=== PATIENT | female | born 1960 ===

== ENCOUNTER 2023-05-29 14:39 | Outpatient (AMB) | payer OTHER, SELFPAY ==
--- NOTE | 2023-05-29 08:41 | MHC.OFFVIS ---
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 The patient states that her pains have gotten somewhat worse over the last few months. She denies any trauma preceding the onset of her pain. She has taken ibuprofen which gives her only mild relief. Most of the pain is along the medial aspects of her knees. She states that both of her knees will intermittently give out. 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[employer] Physical Exam Vital Signs: BMI result Body Mass Index 32.9 Const Other: Well-nourished well-developed very friendly female awake alert and oriented x3 in no acute distress Extrem Other: Bilateral lower extremity examination shows good capillary refill, no skin lesions noted, normal sensation light touch Bilateral knee examination shows minimal effusions, tenderness along her medial joint lines, positive Roe's test, no instability Results Reviewed Results Reviewed: X-rays of the patient's bilateral knee show mild joint space narrowing, no acute bony abnormalities Assessment & Plan Assessment & Plan (1) Bilateral knee pain: Code(s): M25.561 - Pain in right knee; M25.562 - Pain in left knee (2) Right knee pain: Code(s): M25.561 - Pain in right knee Plan Ms. Neumann presents with bilateral knee pains and mechanical symptoms, left greater than right, due to early degenerative joint disease as well as possible tearing of her medial menisci. I had a lengthy discussion with the patient regarding the treatment options. The patient was fitted for bilateral knee braces. I do feel that the braces are a medical necessity to help prevent future falls because of the patient's symptoms of instability. I also gave the patient a prescription to go to formal physical therapy. She will follow up on an as-needed basis should her symptoms not plateau at an unacceptable level over the next few months. Feel free to call me at any time should questions regarding her orthopedic management arise. I spent 22 minutes in reviewing the patient's records and imaging studies, seeing the patient and documenting in the medical record. Orders: Orders XR knee LT 3V 05/29/23 M25.562 - Pain in left knee PT Evaluation and Treatment 05/29/23 M25.561 - Pain in right knee, M25.562 - Pain in left knee XR knee RT 3V 05/29/23 M25.561 - Pain in right knee Coding Level of Care Code New Pt Level 2 (99917) Diagnoses Bilateral knee pain M25.561; M25.562 Right knee pain M25.561
[2023-05-29 15:01] VITALS: BMI 32.9
== END 2023-05-29 15:34 | disposition home or self-care (01) ==
PROVIDERS: PCP Internal Medicine; Visit Provider Orthopaedic Surgery
DX: M25.561 Pain in right knee (principal); M25.562 Pain in left knee
CPT/HCPCS: 99202

== ENCOUNTER 2023-05-29 15:30 | Outpatient (REF) | payer OTHER, SELFPAY ==
--- NOTE | ~2023-05-29 | XR_ITS ---
EXAMINATION: XR BILATERAL KNEES CLINICAL INFORMATION: Pain in bilateral knees. COMPARISON: None available. TECHNIQUE: 3 views of each knee. FINDINGS: Right Knee: Small joint effusion. Mild medial joint space narrowing. Tiny medial and posterior patellar osteophytes. Left Knee: Mild medial joint space narrowing. Tiny medial and posterior patellar osteophytes. Moderate suprapatellar effusion. XR/XR knee LT 3V IMPRESSION: Mild degenerative changes in the bilateral knees.
--- NOTE | ~2023-05-29 | XR_ITS ---
EXAMINATION: XR BILATERAL KNEES CLINICAL INFORMATION: Pain in bilateral knees. COMPARISON: None available. TECHNIQUE: 3 views of each knee. FINDINGS: Right Knee: Small joint effusion. Mild medial joint space narrowing. Tiny medial and posterior patellar osteophytes. Left Knee: Mild medial joint space narrowing. Tiny medial and posterior patellar osteophytes. Moderate suprapatellar effusion. XR/XR knee RT 3V IMPRESSION: Mild degenerative changes in the bilateral knees.
== END 2023-05-29 15:31 | disposition home or self-care (01) ==
LOC: HO.HOSX 15:30
PROVIDERS: Visit Provider Orthopaedic Surgery
DX: M25.561 Pain in right knee (principal); M25.562 Pain in left knee
CPT/HCPCS: 73562; 99202

== ENCOUNTER 2023-11-14 12:52 | Outpatient (AMB) | payer OTHER, SELFPAY ==
[2023-11-14 12:54] VITALS: BMI 32.9
--- NOTE | 2023-11-14 12:54 | MHC.OFFVIS ---
Vital Signs 11/14/23 12:54 Height 5 ft 2 in Weight 180 lb BMI 32.9 Intake Visit Reasons: Left knee pain Intake Note: Carrol is a 63 year old female who presents with complaints of bilateral knee pains, left greater than right. The patient states that at this point her right knee pain is tolerable to her. She describes her left knee pain as sharp in nature. She has done physical therapy exercises which aggravated her pain. She has also tried Tylenol and anti-inflammatory medicines which gave her minimal relief. She would like to hold off on surgery if at all possible. Motors And Generators Inspector Required: Yes Motors And Generators Inspector Language: [place] Motors And Generators Inspector Services: Motors And Generators Inspector Present Motors And Generators Inspector Name: Sarahy [id number] Allergies No Known Allergies Allergy (Verified 11/14/23 12:55) Medication List - Last Reconciled 11/14/23 by Blaine Remy MD ibuprofen 200 mg PO Q6H PRN PFSH Surgical History (Updated 05/29/23 @ 15:13 by Marti Griffin CMA) History of Hx of hysterectomy (Unknown) Social History (Updated 05/29/23 @ 15:12 by Marti Griffin CMA) Patient Tobacco Use Status: Never used Tobacco 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 Physical Exam Vital Signs: BMI result Body Mass Index 32.9 Const Other: Well-nourished well-developed very friendly female awake alert and oriented x3 in no acute distress Extrem Other: Bilateral lower extremity examination shows good capillary refill, no skin lesions noted, normal sensation light touch Left knee examination shows a mild effusion, palpable crepitus with range of motion, pain with range of motion, no instability Office Procedures Joint Injection/Aspiration Joint Injection/Aspiration Primary Site: left knee Prep: site was prepped using aseptic technique Injected: 40 mg of, DepoMedrol and 1% plain lidocaine Procedure: The patient tolerated the procedure well Coding 69714 - Large joint Procedure code (CPT) selection complete Results Reviewed Results Reviewed: X-rays of the patient's left knee taken previously show joint space narrowing, subchondral sclerosis, no acute bony abnormalities Assessment & Plan Assessment & Plan (1) Arthritis of left knee: Code(s): M17.12 - Unilateral primary osteoarthritis, left knee Category: Medical (2) Left knee pain: Code(s): M25.562 - Pain in left knee Category: Medical Plan Ms. Neumann presents with bilateral knee pains, left greater than right, due to degenerative joint disease. I had a lengthy discussion with the patient regarding the treatment options. The risks and benefits of a left knee cortisone injection were discussed at length with the patient. The patient wished to proceed. Prior to the injection I aspirated 3 cc of clear fluid from her left knee. She tolerated the injection well. She will continue with her home exercise program. She will follow up with me on an as-needed basis should her symptoms not plateau at an unacceptable level over the next few months. Orders: Orders AMB Joint Injection/Aspiration 11/14/23 M17.12 - Unilateral primary osteoarthritis, left knee Coding Level of Care Code Est Pt Level 3 (40338) Diagnoses Arthritis of left knee M17.12 Left knee pain M25.562 CPT Codes Coding - 63350 Large joint: 05213 - Large joint ([id number])
== END 2023-11-14 13:17 | disposition home or self-care (01) ==
PROVIDERS: Visit Provider Orthopaedic Surgery
DX: M17.12 Unilateral primary osteoarthritis, left knee (principal); M25.562 Pain in left knee
CPT/HCPCS: 20610; 99213

== ENCOUNTER → 2023-11-14 12:52 | Outpatient (BNVA) | payer OTHER, SELFPAY | PROVIDERS: Visit Provider Orthopaedic Surgery | DX: M17.12 Unilateral primary osteoarthritis, left knee (principal); M25.561 Pain in right knee | CPT/HCPCS: 20610; 99212; J1010 ==

== ENCOUNTER 2024-09-01 12:55 | Outpatient (AMB) | payer OTHER, SELFPAY ==
--- NOTE | 2024-09-01 13:15 | MHC.OFFVIS ---
Vital Signs 09/01/24 13:17 Height 5 ft 2 in Weight 180 lb BMI 32.9 Intake Visit Reasons: OV- Left Knee MRI review Intake Note: Carrol is a 64 year old female who presents today for a MRI review of the left knee. The patient states that her left knee feels somewhat better when compared to her last visit. She has been walking for exercise. She takes ibuprofen as needed for her discomfort. 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 Physical Exam Vital Signs: BMI result Body Mass Index 32.9 Const Other: Well-nourished well-developed very friendly female awake alert and oriented x3 in no acute distress Extrem Other: Bilateral lower extremity examination shows good capillary refill, no skin lesions noted, normal sensation light touch Left knee examination shows a minimal effusion, mild crepitus with range of motion, tenderness along her medial joint line, positive Roe's test, no instability Results Reviewed Results Reviewed: MRI of the patient's left knee [facility] shows mild diffuse degenerative changes as well as a tear of the medial meniscus Assessment & Plan Assessment & Plan (1) Tear of medial meniscus of left knee: Code(s): S83.242A - Other tear of medial meniscus, current injury, left knee, initial encounter Category: Medical Plan Ms. Neumann presents with intermittent left knee discomfort due to a medial meniscus tear. I had a lengthy discussion with the patient regarding the treatment options. At this point the patient's symptoms are tolerable to her. She will continue with her activity modifications. She will follow up with me on an as-needed basis should her symptoms worsen in any way. Feel free to call me at any time should questions regarding her orthopedic management arise. I spent 21 minutes in reviewing the patient's records and imaging studies, seeing the patient and documenting in the medical record. Coding Level of Care Code Est Pt Level 3 (29987) Complex EM visit Add On G2211 Diagnoses Tear of medial meniscus of left knee S83.242A
[2024-09-01 13:17] VITALS: BMI 32.9
--- OUTSIDE RECORDS SUMMARY | 2024-09-01 14:25 | XMS_ITS | Clinical Summary ---
Author Organization [address] [facility] Address [address] [place] [address] Phone Care Team Providers Care Frit Mixer Name Role Phone Caridad Snyder MD Primary Care Provider [phone] Surgical History Surgery Date Site/Laterality Comments CHOLECYSTECTOMY 2010 PROCEDURE: HISTORICAL CHOLECYSTECTOMY SECTION PROCEDURE: HISTORICAL DELIVERY; COMMENT: x 2 OTHER SURGICAL HISTORY 10/18/2016 PROCEDURE: GA DILATION & CURETTAGE DX&/THER NONOBSTETRIC; COMMENT: Hysteroscopy, D&C with removal of a submucous fibroid as performed by Dr. Jacqueline Gu OTHER SURGICAL HISTORY 08/04/2018 PROCEDURE: HISTORICAL TOTAL HYSTERECTOMY W/O BSO; COMMENT: Total abdominal hysterectomy with bilateral salpingectomy performed by Dr. Srivastava. Medical History Medical History Date Comments Intramural leiomyoma of uterus D X:Intramural leiomyoma of uterus Family History Relation Name Status Comments Father Mother Alive Son 1 Alive Son 2 Alive Son 3 Alive Son 4 Alive Son 5 Alive Social History Tobacco Use Types Packs/Day Years Used Date Smoking Tobacco: Never Smokeless Tobacco: Never Alcohol Use Standard Drinks/Week Comments No 0 (1 standard drink = 0.6 oz pur e alcohol) Comments Unknown Sex and Gender Information Value Date Recorded Sex Assigned at Not on file Legal Sex Female 8:18 AM EST Gender Identity Not on file Sexual Orientation Not on file Obstetrics History Last Filed Vital Signs Vital Sign Reading Time Taken Comments Blood Pressure - - Pulse - - Temperature - - Respiratory Rate - - Oxygen Saturation - - Inhaled Oxygen Concentration - - Weight 83.2 kg (183 lb 6.4 oz) 06/26/2023 8:12 A M EDT Height 157.5 cm (5' 2 ) 06/26/2023 8:12 AM EDT Body Mass Index 33.54 06/26/2023 8:12 AM EDT Plan of Treatment Upcoming Encounters Date Type Department Care Team (Late Contact Info) Description 09/09/2024 10:30 AM EDT Consult Orthopedic Surgery - [facility] [address] [facility] [address] [place] [address] Jenna Lechuga PA [address] [facility] [address] [place] [address] Health Maintenance Due Date Last Done Comments Breast Cancer Screening 1962 DTaP,Tdap,and Td Vaccines (1 - Tdap) 1981 Cervical Cancer Screening: HPV 06/01/1983 Pneumococcal Vaccine: 50+ Ye ars (1 of 1 - PCV) 2012 Zoster Vaccines (1 of 2) 2012 Colorectal Cancer Screening: Colonoscopy 02/24/2022 Depression Screening 02/24/2022 HIV Screening 02/24/2022 Hepatitis C Screening 02/24/2022 Social Influencers of Health Screening 02/24/2022 COVID-19 Vaccine ( - 2023-2 5 season) 2023 Influenza Vaccine (Season Ended) 2024 RSV Immunization Adult Patie nts (1 - 1-dose 75+ series) 2037 HIB Vaccines Aged Out No longer eligi ble based on patient's age to complete this topic HPV Vaccines Aged Out No longer eligi ble based on patient's age to complete this topic Hepatitis A Vaccines Aged Out No long er eligible based on patient's age to complete this topic Hepatitis B Vaccines Aged Out No long er eligible based on patient's age to complete this topic IPV Vaccines Aged Out No longer eligi ble based on patient's age to complete this topic MMR Vaccines Aged Out No longer eligi ble based on patient's age to complete this topic Meningococcal ACWY Vaccine Aged Out N o longer eligible based on patient's age to complete this topic Meningococcal B Vaccine Aged Out No l onger eligible based on patient's age to complete this topic Pneumococcal Vaccine: Pediat rics (0 to 5 Years) and At-Risk Patients (6 to 64 Years) Aged Out No longer eligible b ased on patient's age to complete this topic RSV Immunization Patients Un graham 20 months Aged Out No longer eligible b ased on patient's age to complete this topic Varicella Vaccines Aged Out No longer eligible based on patient's age to complete this topic Insurance [facility] Care Teams Frit Mixer Relationship Specialty Start Date End Date Caridad Snyder MD [address] [facility] [address] [place] [address] PCP - General 05/16/23
== END 2024-09-01 13:49 | disposition home or self-care (01) ==
LOC: HO.HOS 12:55
PROVIDERS: Visit Provider Orthopaedic Surgery
DX: S83.242A Other tear of medial meniscus, current injury, left knee, initial encounter (principal)
CPT/HCPCS: 99213; G2211

== ENCOUNTER → 2024-09-01 12:55 | Outpatient (BNVA) | payer OTHER, SELFPAY | PROVIDERS: Visit Provider Orthopaedic Surgery | DX: S83.242A Other tear of medial meniscus, current injury, left knee, initial encounter (principal) | CPT/HCPCS: 99212 ==